=== PATIENT | male | born 1965 | race Caucasian/White ===

== ENCOUNTER 2022-11-08 22:38 | Emergency (ER) | payer BC, SELFPAY ==
[2022-11-08 23:11] VITALS: BP 130/73; PULSE 63; RESP 16; TEMP 36.7; O2SAT 95; BMI 27.7
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
[2022-11-09] MEDS: TET,DIPH,PERTUSS(ACELL),VAC/PF 0.5 ML SYRINGE IM (01:46)
[2022-11-09] MEDS: BACITRACIN OINT 0.9 GM PCKT 3 APPLIC TOP (02:10)
[2022-11-09 02:20] VITALS: BP 126/76; PULSE 64; RESP 16; TEMP 36.7; O2SAT 97
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
== END 2022-11-09 02:15 | disposition home or self-care (01) ==
PROVIDERS: Emergency Provider Emergency Medicine
DX: T23.262A Burn of second degree of back of left hand, initial encounter (principal); X19.XXXA Contact with other heat and hot substances, initial encounter; Z23 Encounter for immunization
CPT/HCPCS: 16020; 90471; 99283; 90715